=== PATIENT | female | born 1980 | race Caucasian/White ===

== ENCOUNTER 2018-02-16 09:19 | Day surgery (SDC) | payer MEDICAID ==
[~2018-02-16 09:19] MED LIST: PROPOFOL INJ 200 MG/20 ML VIAL IV ONE
[2018-02-16 12:10] VITALS: BP 149/104
--- NOTE | 2018-02-16 14:06 | Operative Report ---
Operative Report DATE OF SURGERY: 02/16/18 Operative Report: The risks, benefits and alternatives of the procedure including the risk of bleeding, perforation requiring surgery are explained to the patient in detail and informed consent is obtained. Patient is brought back to the endoscopy suite and placed in the left, lateral decubital position. Timeout was called. Propofol medication is administered. A rectal examination is done which did not reveal any masses, tears or fissures. An Olympus videoscope was introduced into the patient's rectum. The scope was then carefully advanced all the way to the cecum. The cecum was identified by the usual anatomical landmarks including the ileocecal valve as well as the appendiceal office. Photodocumentation is obtained. The scope was then sequentially pulled back via the various segments of the colon including the ascending colon, hepatic flexure, transverse colon, splenic flexure, descending colon and finally into the rectosigmoid portions of the colon. Retroflexion maneuvers performed. The risks benefits and alternatives of the procedure explained to the patient in detail and informed consent is obtained.A GIF Olympus video scope was inserted into the patient's mouth and hypopharynx, the esophagus is identified intubated and insufflated, the scope was then advanced through the esophagus stomach and duodenum, retroflexion maneuver is done the esophagus stomach and first and second portions of the duodenum examined PREOPERATIVE DIAGNOSIS: Rectal bleeding. Family history of colorectal cancer. Nausea and vomiting POSTOPERATIVE DIAGNOSIS: Rectal polyp that was removed via snare polypectomy and retrieved. There is an area of thickening in the sigmoid area, the area was tattooed with submucosal Elizabeth ink injection, biopsies obtained. If it does show that it is a polyp I may have to bring her back to remove it via snare polypectomy. Pedunculated descending colon polyp that was removed via snare polypectomy. Sessile polyp noted in the descending colon was removed via biopsy forceps. Internal hemorrhoids. Diverticulosis without any evidence of diverticulitis. Gastritis status post biopsy rule out Helicobacter pylori OPERATION: Colonoscopy with snare polypectomy. Colonoscopy with submucosal Elizabeth ink injection. Colonoscopy with biopsy. EGD with biopsy SURGEON: ZACH MG ANESTHESIA: LMAC TISSUE REMOVED OR ALTERED: As noted above. COMPLICATIONS: None. ESTIMATED BLOOD LOSS: None. INTRAOPERATIVE FINDINGS: As noted above. PROCEDURE: Patient tolerated procedure well. No immediate postprocedure comp occasions are noted. Patient discharged in good condition. Discharge date 02/16/2018. Discharge diet: Regular. Discharge activity: Regular. 2-3-week follow-up to discuss findings. Patient is instructed call the office or proceed to the emergency room should there be any further proximal questions. Wait on the pathology. 1 year surveillance colonoscopy.
== END 2018-02-16 11:39 | disposition home or self-care (01) ==
LOC: END 09:19
PROVIDERS: ATTEND Internal Medicine Gastroenterology
DX: D12.8 Benign neoplasm of rectum (principal); K57.30 Diverticulosis of large intestine without perforation or abscess without bleeding; D12.4 Benign neoplasm of descending colon; K64.8 Other hemorrhoids; K62.5 Hemorrhage of anus and rectum; K29.50 Unspecified chronic gastritis without bleeding; I10 Essential (primary) hypertension; F17.210 Nicotine dependence, cigarettes, uncomplicated; J45.909 Unspecified asthma, uncomplicated; Z86.718 Personal history of other venous thrombosis and embolism
CPT/HCPCS: 43239; 45380; 45385; 45381; 88342 ×2; 88305 ×2; J2704; 813

== ENCOUNTER 2018-05-01 10:08 | Day surgery (SDC) | payer MEDICAID ==
[~2018-05-01 10:08] MED LIST changes: +CEFAZOLIN 2 GM/D5W RTU 2 GM/50 ML RTUPB IV PRN; -PROPOFOL INJ 200 MG/20 ML VIAL IV ONE
[2018-05-01 10:26] LABS: APPEARANCE,URINE CLOUDY; BILIRUBIN,URINE NEGATIVE (NEGATIVE); GLUCOSE, URINE NEGATIVE (NEGATIVE); KETONES,URINE NEGATIVE (NEGATIVE); LEUKOCYTE ESTERASE,URINE NEGATIVE (NEGATIVE); NITRITE,URINE NEGATIVE (NEGATIVE); PROTEIN,URINE NEGATIVE (NEGATIVE); URINE SPECIFIC GRAVITY 1.029
[2018-05-01 10:27] LABS: COLOR,URINE YELLOW
--- NOTE | 2018-05-01 10:39 | RADIOLOGY REPORT (SQ) ---
EXAM DESCRIPTION: CHEST SINGLE VIEW COMPLETED DATE/TIME: 05/01/2018 10:29 am REASON FOR STUDY: PREOP COMPARISON: None. EXAM PARAMETERS: NUMBER OF VIEWS: One view. TECHNIQUE: Single frontal radiographic view of the chest acquired. RADIATION DOSE: NA LIMITATIONS: None. FINDINGS: LUNGS AND PLEURA: No opacities, masses or pneumothorax. No pleural effusion. MEDIASTINUM AND HILAR STRUCTURES: No masses. Contour normal. HEART AND VASCULAR STRUCTURES: Heart normal in size. Normal vasculature. BONES: No acute findings. HARDWARE: None in the chest. OTHER: No other significant finding. IMPRESSION: NO ACUTE RADIOGRAPHIC FINDING IN THE CHEST. TECHNICAL DOCUMENTATION: JOB ID: [id number] [employer]- All Rights Reserved Reading location - IP/workstation name: [email or web address]
[2018-05-01] MEDS ORDERED: CEFAZOLIN 1 GM/D5W RTU 1 GM/50 ML RTUPB IV ONE (10:45)
[2018-05-01] MEDS ORDERED: PROPOFOL INJ 200 MG/20 ML VIAL IV ONE (10:56)
[2018-05-01] MEDS ORDERED: ACETAMINOPHEN 1,000 MG/100 ML RTUPB IV ONE (10:56)
[2018-05-01] MEDS ORDERED: HYDROMORPHONE HCL INJ/PF 2 MG/ML AMPULE ONE ×2 (10:56→15:07)
[2018-05-01] MEDS ORDERED: FENTANYL CITRATE INJ/PF 100 MCG/2 ML AMPUL ONE (10:56)
[2018-05-01] MEDS ORDERED: ONDANSETRON HCL INJ/PF 4 MG/2 ML SDV ONE (10:56)
[2018-05-01] MEDS ORDERED: LIDOCAINE 2% INJ-PF (20 MG/ML) 10 ML AMPUL ONE (10:56)
[2018-05-01] MEDS ORDERED: MIDAZOLAM 2 MG/2 ML INJ ONE ×2 (10:56→15:07)
[2018-05-01 10:57] LABS: HEMATOCRIT 42.6 % (36.0-47.0); HEMOGLOBIN 14.7 g/dL (12.0-15.5); MEAN CORPUSCULAR HEMOGLOBIN 30.5 pg (27.0-33.4); MEAN CORPUSCULAR HGB CONC 34.6 g/dL (32.0-36.0); MEAN CORPUSCULAR VOLUME 88 fl (80-97); PLATELET COUNT 386 10^3/uL (150-450); RED BLOOD COUNT 4.83 10^6/uL (3.72-5.28); RED CELL DISTRIBUTION WIDTH 14.7 % (11.5-14.0); WHITE BLOOD COUNT 11.8 10^3/uL (4.0-10.5)
[2018-05-01 12:47] LABS: ANION GAP 6 (5-19); BLOOD UREA NITROGEN 15 mg/dL (7-20); CALCIUM 8.8 mg/dL (8.4-10.2); CARBON DIOXIDE 24 mmol/L (22-30); CHLORIDE 110 mmol/L (98-107); GLUCOSE 89 mg/dL (75-110); POTASSIUM 4.5 mmol/L (3.6-5.0); SODIUM 140.2 mmol/L (137-145)
[2018-05-01] MEDS ORDERED: OXYCODONE-ACETAMINOPHEN 5-325 MG TABLET PO PRN ×2 (14:27)
[2018-05-01] MEDS ORDERED: PROMETHAZINE HCL INJ 25 MG/1 ML VIAL IV PRN ×2 (14:27)
[2018-05-01] MEDS ORDERED: MEPERIDINE HCL/PF INJ 25 MG/1 ML DISP.SYRIN IV PRN (14:27)
[2018-05-01] MEDS ORDERED: ONDANSETRON HCL INJ/PF 4 MG/2 ML SDV IV PRN (14:27)
[2018-05-01] MEDS ORDERED: DIPHENHYDRAMINE HCL 50 MG/ML VIAL IV PRN (14:27)
[2018-05-01] MEDS ORDERED: FENTANYL CITRATE INJ/PF 100 MCG/2 ML AMPUL IV PRN ×3 (14:27)
[2018-05-01] MEDS ORDERED: HYDROMORPHONE HCL 2 MG TABLET PO PRN (15:28)
--- NOTE | 2018-05-01 15:28 | Discharge Summary ---
Discharge Summary (SDC) - Discharge Final Diagnosis: ORIF of right distal tibia Date of Surgery: 05/01/18 Discharge Date: 05/01/18 Condition: Good Treatment or Instructions: Keep the right lower extremity elevated with for 5 pills. Okay to apply a towel and then a big bag of ice. Nonweightbearing right lower extremity with crutches Follow-up in the office in 10-14 days. The splint dry clean and intact until follow-up. Prescriptions: Hydromorphone HCl [Dilaudid 2 mg Tablet] 2 mg PO Q4HP PRN #25 tablet PRN Reason: Referrals: VIJI HILTON MD [Primary Care Provider] - Discharge Diet: As Tolerated Respiratory Treatments at Home: Deep Breathing/Coughing Discharge Activity: No Driving, Keep Legs Elevated Adaptive Devices on Discharge: Axillary Crutches Report the Following to Your Physician Immediately: Shortness of Breath, Vomiting, Increase in Pain, Fever over 101 Degrees, Unusual Bleeding, Redness
--- NOTE | 2018-05-01 15:41 | Operative Report ---
Operative Report DATE OF SURGERY: 05/01/18 PREOPERATIVE DIAGNOSIS: Right distal tibia fracture POSTOPERATIVE DIAGNOSIS: Same OPERATION: ORIF of right distal tibia fracture SURGEON: FELIPE KINGSTON ANESTHESIA: GA TISSUE REMOVED OR ALTERED: None COMPLICATIONS: None ESTIMATED BLOOD LOSS: Less than 30 mL INTRAOPERATIVE FINDINGS: As above PROCEDURE: Patient received preoperative antibiotics and then was taken to the operating room where she received general anesthetic. Thigh tourniquet was applied to the right lower extremity. Right lower extremity was prepped and draped in a normal sterile surgical fashion. Timeout was done identifying the right distal tibia as the correct site. Esmarch was used to single right extremity and the tourniquet was inflated to 280 mmHg. A anterior longitudinal incision was done the anterior tibia artery down to the ankle joint. After the skin incision was done Metzenbaum scissors were used for dissection and exposed the extensor retinaculum. This was incised and reflected both medial laterally. This exposed the tibialis anterior which was reflected laterally with the neurovascular bundle. Fracture site was exposed periosteum was reflected and with traction and pointed reduction clamp we were able to reduce the fragment near anatomically. We then proceeded to use a anterior lateral plate from [employer] and secured it in proper placement. C-arm pictures showed location of the plate as well as the reduction was maintained so we proceeded to place K wires to hold the plate. I first placed a cortical screw in the shaft to hold the proximal fragment. While this was held by the K wire we were able then to also do a nonlocking screw on the distal fragment. AP and lateral pictures showed proper alignment and reduction and position of the plate so we proceeded to secure the reduction and fixation with some locking screws distally and proximally. AP and lateral pictures show proper length and fixation of the screws in position and unchanged reduction. The screw was a bit prominent medially but still acceptable. We proceeded then to use bulb irrigation to clean the extremity and reattached the extensor retinaculum. This was closed with 2-0 Vicryl. We then proceeded to reapproximate the subtenons tissue with 2-0 Vicryl and then denis for skin. Xeroform 4 x 4 dressing was applied followed by soft roll. Tourniquet was let down at 56 minutes. A 4 inch short leg splint was applied and a hardened. Drapes were removed and the patient was extubated and sent to PACU in stable condition
[2018-05-01] MEDS ORDERED: PROMETHAZINE HCL INJ 25 MG/1 ML VIAL ONE (15:55)
--- NOTE | 2018-05-01 15:55 | RADIOLOGY REPORT (SQ) ---
EXAM DESCRIPTION: ANKLE RIGHT AP/LATERAL; NO CHG FLUORO COMPLETED DATE/TIME: 05/01/2018 3:11 pm REASON FOR STUDY: ORIF RIGHT ANKLE ASST WITH FLUORO IN OR COMPARISON: None. FLUOROSCOPY TIME: 0.3 minutes total fluoro time 5 digital radiographic images saved to PACS. TECHNIQUE: Intra-operative images acquired during surgical procedure to evaluate progress. NUMBER OF IMAGES: 5 digital C-arm images LIMITATIONS: None. FINDINGS: Intra procedural imaging and fluoro during ORIF distal right tibial fracture with fixation plate and multiple screws. Good alignment at the fracture site. Please see the operative report fo r further details IMPRESSION: Intra procedural imaging and fluoro COMMENT: Quality ID [id number]: Final reports for procedures using fluoroscopy that document radiation exp osure indices, or exposure time and number of fluorographic images (if radiation exposure indices are not available) Please consult full operative report of the attending physician for description of the procedure. TECHNICAL DOCUMENTATION: JOB ID: [id number] [employer]- All Rights Reserved Reading location - IP/workstation name: [email or web address]
--- NOTE | 2018-05-01 15:56 | RADIOLOGY REPORT (SQ) ---
EXAM DESCRIPTION: ANKLE RIGHT AP/LATERAL; NO CHG FLUORO COMPLETED DATE/TIME: 05/01/2018 3:11 pm REASON FOR STUDY: ORIF RIGHT ANKLE ASST WITH FLUORO IN OR COMPARISON: None. FLUOROSCOPY TIME: 0.3 minutes total fluoro time 5 digital radiographic images saved to PACS. TECHNIQUE: Intra-operative images acquired during surgical procedure to evaluate progress. NUMBER OF IMAGES: 5 digital C-arm images LIMITATIONS: None. FINDINGS: Intra procedural imaging and fluoro during ORIF distal right tibial fracture with fixation plate and multiple screws. Good alignment at the fracture site. Please see the operative report fo r further details IMPRESSION: Intra procedural imaging and fluoro COMMENT: Quality ID [id number]: Final reports for procedures using fluoroscopy that document radiation exp osure indices, or exposure time and number of fluorographic images (if radiation exposure indices are not available) Please consult full operative report of the attending physician for description of the procedure. TECHNICAL DOCUMENTATION: JOB ID: [id number] [employer]- All Rights Reserved Reading location - IP/workstation name: [email or web address]
[2018-05-01] MEDS: MORPHINE SULFATE 10 MG/ML INJ ONE ×2 (16:00→16:10)
[2018-05-01] MEDS ORDERED: HYDROMORPHONE HCL 2 MG TABLET ONE (16:45)
[2018-05-01 19:14] VITALS: BP 139/100
--- NOTE | 2018-05-01 22:59 | EKG REPORT ---
SEVERITY:- NORMAL ECG - SINUS RHYTHM : Confirmed by: Trina Sagastume MD 01-May-2018 22:58:52
== END 2018-05-01 17:55 | disposition home or self-care (01) ==
LOC: OROUT 10:08
PROVIDERS: ATTEND Orthopaedic Surgery
DX: S82.301A Unspecified fracture of lower end of right tibia, initial encounter for closed fracture (principal); S82.831A Other fracture of upper and lower end of right fibula, initial encounter for closed fracture; W10.9XXA Fall (on) (from) unspecified stairs and steps, initial encounter; F17.210 Nicotine dependence, cigarettes, uncomplicated; J45.909 Unspecified asthma, uncomplicated; I10 Essential (primary) hypertension
CPT/HCPCS: 36415; 85027; 80048; 81001; 73600; 71045; 93005; 93010; 27827; C1713 ×8; J2250; J0690; J3010; J3490 ×2; J2270; J1170; J2550; J2405; J2704; J0131

== ENCOUNTER 2018-06-25 17:38 | Emergency (ER) | payer MEDICAID ==
--- NOTE | 2018-06-25 18:36 | ER Document Report ---
ED Skin Rash/Insect Bite/Abscs - General Chief Complaint: Skin Problem Stated Complaint: SKIN PROBLEM Time Seen by Provider: 06/25/18 18:15 Primary Care Provider: VIJI HILTON MD [Primary Care Provider] - Follow up as needed Mode of Arrival: Ambulatory Information source: Patient Notes: 37-year-old female presented to ED for a small scabbed area to the front of the right lower extremity. She states she had a surgery a month and a half ago for fracture of the tib-fib and she went to physical therapy and they thought that she had a MRSA infection to the lower leg. There is no redness no swelling there is just a small scabbed area. There is no fluctuance to the area. Patient is alert and oriented respirations regular and unlabored speaking in full sentences walks with a even steady gait no distress noted at this time. TRAVEL OUTSIDE OF THE [place] IN LAST 30 DAYS: No - HPI Patient complains to provider of: Tender/swollen area Onset: Yesterday Quality of pain: Achy Severity: Moderate Pain Level: 3 Skin Character: Other - Some tenderness with a scab to the surgical site Quality of rash: Painful Exacerbated by: Denies Relieved by: Denies Similar symptoms previously: Yes Recently seen / treated by doctor: Yes - Related Data Allergies/Adverse Reactions: No Known Allergies Allergy (Verified 05/01/18 10:40) Past Medical History - General Information source: Patient - Social History Smoking Status: Current Every Day Smoker Cigarette use (# per day): Yes - 1/2 ppd Chew tobacco use (# tins/day): No Smoking Education Provided: Yes - 4 min Frequency of alcohol use: None Drug Abuse: None Lives with: Family Family History: Reviewed & Not Pertinent Patient has suicidal ideation: No Patient has homicidal ideation: No - Past Medical History Cardiac Medical History: Reports: Hx Hypertension Pulmonary Medical History: Reports: Hx Asthma, Hx Pneumonia EENT Medical History: Reports: None Neurological Medical History: Reports: None Endocrine Medical History: Reports: None Renal/ Medical History: Reports: None Malignancy Medical History: Reports: None GI Medical History: Reports: None Musculoskeletal Medical History: Reports None, Reports Hx Musculoskeletal Trauma Skin Medical History: Reports None Psychiatric Medical History: Reports: None Traumatic Medical History: Reports: Hx Fractures - right tib fib Infectious Medical History: Reports: None Past Surgical History: Reports: Hx Section - X 2, Hx Cholecystectomy, Hx Hysterectomy, Hx Orthopedic Surgery - RLE - Immunizations Hx Diphtheria, Pertussis, Tetanus Vaccination: Yes Review of Systems - Review of Systems Constitutional: No symptoms reported EENT: No symptoms reported Cardiovascular: No symptoms reported Respiratory: No symptoms reported Gastrointestinal: No symptoms reported Genitourinary: No symptoms reported Female Genitourinary: No symptoms reported Musculoskeletal: No symptoms reported Skin: Other - Small scabbed area to the right lower leg Hematologic/Lymphatic: No symptoms reported Neurological/Psychological: No symptoms reported -: Yes All other systems reviewed and negative Physical Exam - Vital signs Vitals: Temp Pulse Resp BP Pulse Ox 98.1 F 70 16 152/104 H 97 06/25/18 17:50 06/25/18 17:50 06/25/18 17:50 06/25/18 17:50 06/25/18 17:50 Interpretation: Normal - General General appearance: Appears well, Alert - HEENT Head: Normocephalic, Atraumatic Eyes: Normal Pupils: PERRL - Respiratory Respiratory status: No respiratory distress Chest status: Nontender Breath sounds: Normal Chest palpation: Normal - Cardiovascular Rhythm: Regular Heart sounds: Normal auscultation Murmur: No - Abdominal Inspection: Normal Distension: No distension Bowel sounds: Normal Tenderness: Nontender Organomegaly: No organomegaly - Back Back: Normal, Nontender - Extremities General upper extremity: Normal inspection, Nontender, Normal color, Normal ROM, Normal temperature General lower extremity: Normal color, Normal ROM, Normal temperature, Normal weight bearing. No: Alis's sign Calf: Tender - Small scabbed area to the right lower leg no drainage - Neurological Neuro grossly intact: Yes Cognition: Normal Orientation: AAOx4 Efrain Coma Scale Eye Opening: Spontaneous Efrain Coma Scale Verbal: Oriented [place] Coma Scale Motor: Obeys Commands Efrain Coma Scale Total: 15 Speech: Normal Motor strength normal: LUE, RUE, LLE, RLE Sensory: Normal - Psychological Associated symptoms: Normal affect, Normal mood - Skin Skin Temperature: Warm Skin Moisture: Dry Skin Color: Normal Course - Re-evaluation Re-evalutation: 06/25/18 21:22 Scab area noted with no fluctuance no drainage. Area cleaned well with Betadine scab removed from the wound area was cleaned again with Betadine and a Band-Aid applied. Patient was given instructions on bacitracin and Band-Aid and clean and the wound. Patient was instructed to follow-up with her primary doctor. - Vital Signs Vital signs: Temp Pulse Resp BP Pulse Ox 98.1 F 87 18 168/107 H 98 06/25/18 18:45 06/25/18 18:45 06/25/18 18:45 06/25/18 18:45 06/25/18 18:45 Discharge - Discharge Clinical Impression: Pain in right lower leg Condition: Stable Disposition: HOME, SELF-CARE Additional Instructions: You came to the ED today for evaluation of a small area on your right lower extremity that is not healing like the rest of your surgical scar. There is no cellulitis or infection to the area. I have removed the scab clean the area and dressed it. ANTIBIOTIC THERAPY: You have been given an antibiotic prescription. It's important that you take all the medication, unless instructed otherwise by your physician. Failure to complete the entire course can result in relapse of your condition. Common side effects of antibiotics include nausea, intestinal cramping, or diarrhea. Women may develop vaginal yeast infections, and babies can get yeast (thrush) in the mouth following the use of antibiotics. Contact your physician if you develop significant side effects from this medication. Allergy to this antibiotic can result in hives, wheezing, faintness, or itching. If symptoms of allergy occur, stop the medication and call the doctor. Soap Cleansing Gently wash the wound daily using a mild soap (like pHisoHex or yellow Dial). Use warm water, rubbing gently until all debris, ooze, and crusting have been washed from the wound. Allow to dry briefly (about 10 minutes) after cleaning. Repeat this cleansing at least three times a day for the first two days and then once or twice a day. FOLLOW-UP CARE: If you have been referred to a physician for follow-up care, call the physicians office for an appointment as you were instructed or within the next two days. If you experience worsening or a significant change in your symptoms, notify the physician immediately or return to the Emergency Department at any time for re-evaluation. Forms: Elevated Blood Pressure, Smoking Cessation Education Referrals: VIJI HILTON MD [Primary Care Provider] - Follow up as needed
[2018-06-25 18:53] VITALS: BP 168/107
== END 2018-06-25 18:45 | disposition home or self-care (01) ==
LOC: ER 17:38
DX: L98.9 Disorder of the skin and subcutaneous tissue, unspecified (principal); M79.604 Pain in right leg; F17.210 Nicotine dependence, cigarettes, uncomplicated; I10 Essential (primary) hypertension; Z90.49 Acquired absence of other specified parts of digestive tract; Z90.710 Acquired absence of both cervix and uterus
CPT/HCPCS: 99283; 99406